=== PATIENT | male | born 1980 | race Caucasian/White ===

== ENCOUNTER 2016-04-23 17:26 | Emergency (ER) | payer OTHER ==
[~2016-04-23] VITALS: Ht 175.3 cm; Wt 96.0 kg
[2016-04-23 17:31] VITALS: Ht 175.3 cm; Wt 96.0 kg
[2016-04-23] MEDS ORDERED: ACETAMINOPHEN 500 MG TAB PO STA (18:50)
[2016-04-23] MEDS ORDERED: ALBUT/IPRATROP 3MG/0.5MG NEB 3 ML VIAL INH STA (18:50)
[2016-04-23] MEDS ORDERED: SODIUM CHLORIDE 0.9% 1000ML 1,000 ML IV STA (18:50)
[2016-04-23] MEDS ORDERED: KETOROLAC TROMETHAMINE 30 MG/ML VIAL IV STA (18:50)
[2016-04-23] MEDS ORDERED: ONDANSETRON 8 MG/54 ML D5W IV STA (18:50)
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
--- NOTE | 2016-04-23 19:27 | DIAGNOSTIC IMAGING REPORT ---
CHEST ONE VIEW PORTABLE CLINICAL HISTORY: flu like symptoms dyspnea COMPARISON STUDY: 06/12/2015 FINDINGS: The bones soft tissues and hemidiaphragms are normal. The cardiomediastinal silhouette is normal. The lungs are clear. The pulmonary vasculature is normal. Mild stable cardiomegaly IMPRESSION: Mild stable cardiomegaly. Otherwise negative chest Electronically signed by: Homero Newton M.D. 04/23/2016 7:26 PM Dictated Date/Time: 04/23/2016 7:25 PM
[2016-04-23 19:30] LABS: BASO % 0.6 %; BASO ABS # 0.02 K/uL (0-0.2); COMPLETE YES; EOS % 2.1 %; HEMATOCRIT 43.3 % (42-52); IG% 0.3 %; LYMPH ABS # 0.89 K/uL (1.2-3.4); MEAN CELL VOLUME 93.7 fL (80-100); MEAN CORPUSCULAR HEMOGLOBIN 31.2 pg (25-34); MEAN CORPUSCULAR HGB CONC 33.3 g/dl (32-36); MEAN PLATELET VOLUME 10.2 fL (7.4-10.4); PLATELET COUNT 196 K/uL (130-400); RED BLOOD COUNT 4.62 M/uL (4.7-6.1)
[2016-04-23] MEDS ORDERED: HYDROmorphone INJ 0.5 MG/0.5 ML SYR IV STA (19:40)
[2016-04-23] MEDS ORDERED: OSELTAMIVIR PHOSPHATE 75 MG CAP PO STA (19:40)
[2016-04-23 19:53] LABS: ALKALINE PHOSPHATASE 57 U/L (45-117); ALT/SGPT 53 U/L (12-78); BLOOD UREA NITROGEN 8 mg/dl (7-18); BUN/CREATININE RATIO 7.4 (10-20); CALCIUM 8.5 mg/dl (8.5-10.1); CARBON DIOXIDE 30 mmol/L (21-32); CHLORIDE 103 mmol/L (98-107); GLUCOSE 102 mg/dl (70-99)
[2016-04-23 20:05] LABS: SODIUM 143 mmol/L (136-145)
[2016-04-23 20:14] LABS: AST/SGOT 20 U/L (15-37)
[2016-04-23 20:40] VITALS: TEMP 37.2
[2016-04-23 20:50] LABS: MANUAL MICROSCOPIC REQUIRED? NO; URINE APPEARANCE CLEAR (CLEAR); URINE BILIRUBIN NEG (NEG); URINE COLOR YELLOW; URINE NITRITE NEG (NEG); URINE PH 5.5 (4.5-7.5); URINE SPECIFIC GRAVITY >= 1.030 (1.000-1.030); UROBILINOGEN NEG (NEG)
[2016-04-23 20:52] LABS: REVIEW REQ? NO; ZZUR CULT IF INDIC CLEAN CATCH NO
[2016-04-23] MEDS ORDERED: OSEL75CA12 PO (21:52)
[2016-04-23] MEDS ORDERED: HYCODAN 60ML BOTTLE HOMEPACK PO ONE (22:00)
[2016-04-23] MEDS ORDERED: ALBUTEROL HFA 8 GM INHALER INH ONE (22:00)
[2016-04-23 22:12] VITALS: BP 125/83; PULSE 87; O2SAT 96
== END 2016-04-23 22:14 | disposition home or self-care (01) ==
LOC: C.EDB 17:26 → C.EDA 22:14
DX: J10.1 Influenza due to other identified influenza virus with other respiratory manifestations (principal)

== ENCOUNTER 2017-01-01 15:27 | Emergency (ER) | payer OTHER ==
[2017-01-01 15:36] VITALS: O2SAT 96
[2017-01-01] MEDS ORDERED: ONDANSETRON 8 MG/54 ML D5W IV STA (15:36)
[2017-01-01] MEDS ORDERED: SODIUM CHLORIDE 0.9% 1000ML 1,000 ML IV STA (15:36)
[2017-01-01] MEDS ORDERED: ONDANSETRON INJ 2 MG/ML 2 ML VIAL IV STA (15:36)
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
[2017-01-01] MEDS ORDERED: OPTIRAY 320 IV PRN (15:45)
[2017-01-01] MEDS ORDERED: MoRPHine SULFATE 10 MG/ML CARP/VIAL IV STA (16:04)
[2017-01-01 16:05] LABS: VENOUS BLOOD GAS PCO2 61 mmHg (38.0-50.0); VENOUS BLOOD GAS PO2 24 mmHg
[2017-01-01] MEDS ORDERED: MoRPHine SULFATE 10 MG/ML CARP/VIAL ONE (16:05)
[2017-01-01 16:06] LABS: ISTAT CREATININE 1.5 mg/dl (0.6-1.3); ISTAT IONIZED CALCIUM 1.13 mmol/l (1.12-1.32)
[2017-01-01 16:06] LABS: VEN BLD GAS O2 SATURATION < 60.0 %
[2017-01-01 16:07] LABS: BASO % 0.6 %; BASO ABS # 0.05 K/uL (0-0.2); COMPLETE YES; EOS % 2.2 %; HEMATOCRIT 44.6 % (42-52); IG% 1.1 %; LYMPH % 35.1 %; LYMPH ABS # 2.81 K/uL (1.2-3.4); MEAN CELL VOLUME 94.7 fL (80-100); MEAN CORPUSCULAR HEMOGLOBIN 32.5 pg (25-34); MEAN CORPUSCULAR HGB CONC 34.3 g/dl (32-36); MEAN PLATELET VOLUME 10.3 fL (7.4-10.4); MONO % 7.9 %; NEUT % 53.1 %; PLATELET COUNT 296 K/uL (130-400); RED BLOOD COUNT 4.71 M/uL (4.7-6.1); WHITE BLOOD COUNT 8.01 K/uL (4.8-10.8)
[2017-01-01 16:14] LABS: INR 0.9 (0.9-1.1); PARTIAL THROMBOPLASTIN RATIO 0.9
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
[2017-01-01 16:26] LABS: ALT/SGPT 66 U/L (12-78); BLOOD UREA NITROGEN 17 mg/dl (7-18); BUN/CREATININE RATIO 12.1 (10-20); CALCIUM 8.7 mg/dl (8.5-10.1); CARBON DIOXIDE 27 mmol/L (21-32); CHLORIDE 100 mmol/L (98-107); CREATININE 1.36 mg/dl (0.60-1.40); GLUCOSE 112 mg/dl (70-99); POTASSIUM 3.4 mmol/L (3.5-5.1); SODIUM 138 mmol/L (136-145)
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
[2017-01-01 16:31] LABS: ALKALINE PHOSPHATASE 69 U/L (45-117); AST/SGOT 56 U/L (15-37)
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
[2017-01-01] MEDS ORDERED: HYDROmorphone INJ 0.5 MG/0.5 ML SYR IV STA ×2 (16:44→17:21)
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
[2017-01-01] MEDS ORDERED: SODIUM CHLORIDE 0.9% 500ML 500 ML IV STA (17:21)
[2017-01-01] MEDS ORDERED: HYDROmorphone INJ 1 MG/ML SYR IV STA (18:08)
[2017-01-01 18:20] VITALS: BP 136/100; PULSE 104; TEMP 36.5; O2SAT 98
== END 2017-01-01 18:21 | disposition short-term general hospital (02) ==
LOC: C.EDB 15:28 → C.EDA 18:21
DX: S22.41XA Multiple fractures of ribs, right side, initial encounter for closed fracture (principal); S06.0X9A Concussion with loss of consciousness of unspecified duration, initial encounter; S42.109A Fracture of unspecified part of scapula, unspecified shoulder, initial encounter for closed fracture; V86.99XA Unspecified occupant of other special all-terrain or other off-road motor vehicle injured in nontraffic accident, initial encounter; F10.129 Alcohol abuse with intoxication, unspecified; Y90.6 Blood alcohol level of 120-199 mg/100 ml; Z90.49 Acquired absence of other specified parts of digestive tract; Z83.3 Family history of diabetes mellitus; Z82.49 Family history of ischemic heart disease and other diseases of the circulatory system

== ENCOUNTER 2017-02-04 18:04 | Emergency (ER) | payer OTHER ==
[~2017-02-04] VITALS: Ht 175.3 cm; Wt 83.2 kg
[2017-02-04 18:11] VITALS: Ht 175.3 cm; Wt 83.2 kg
[2017-02-04 18:25] VITALS: O2SAT 96
[2017-02-04] MEDS ORDERED: ONDANSETRON INJ 2 MG/ML 2 ML VIAL IV STA (18:31)
[2017-02-04] MEDS ORDERED: MoRPHine SULFATE 4 MG/ML 1 ML CARP\\VIAL IV STA (18:31)
[2017-02-04] MEDS ORDERED: SODIUM CHLORIDE 0.9% 500ML 500 ML IV STA (18:31)
[2017-02-04 18:57] LABS: BASO % 0.4 %; BASO ABS # 0.02 K/uL (0-0.2); EOS % 1.3 %; EOS ABS # 0.06 K/uL (0-0.5); HEMOGLOBIN 14.7 g/dL (14.0-18.0); IG# 0.01 K/uL (0.00-0.02); LYMPH ABS # 1.43 K/uL (1.2-3.4); MEAN CELL VOLUME 90.1 fL (80-100); MEAN CORPUSCULAR HEMOGLOBIN 30.8 pg (25-34); MEAN CORPUSCULAR HGB CONC 34.2 g/dl (32-36); MONO % 10.1 %; MONO ABS # 0.45 K/uL (0.11-0.59); PLATELET COUNT 317 K/uL (130-400); RED CELL DISTRIBUTION WIDTH CV 12.5 % (11.5-14.5); WHITE BLOOD COUNT 4.47 K/uL (4.8-10.8)
[2017-02-04 18:59] LABS: ISTAT IONIZED CALCIUM 1.06 mmol/l (1.12-1.32); ISTAT POTASSIUM 4.4 mEq/L (3.3-5.0)
[2017-02-04] MEDS ORDERED: OPTIRAY 320 IV PRN (19:00)
[2017-02-04 19:09] VITALS: TEMP 37.1
[2017-02-04 19:18] LABS: CALCIUM 9.1 mg/dl (8.5-10.1); CREATININE 1.06 mg/dl (0.60-1.40)
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
[2017-02-04] MEDS ORDERED: OXYCODONE HCL IR 5 MG TAB (IMMEDIATE RELEASE) PO STA (19:34)
[2017-02-04] MEDS ORDERED: OXYC-737 PO (19:35)
[2017-02-04] MEDS ORDERED: TRAM-10 PO (19:40)
[2017-02-04] MEDS ORDERED: EMPTY 8 DRAM VIAL ONE (19:44)
[2017-02-04 19:47] VITALS: BP 138/84; PULSE 79; O2SAT 99
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
[2017-03-17] MEDS ORDERED: OXYC-90 PO (17:23)
== END 2017-02-04 20:01 | disposition home or self-care (01) ==
LOC: C.EDB 18:05 → C.EDC 20:01
DX: S22.41XS Multiple fractures of ribs, right side, sequela (principal); V86.55XS Driver of 3- or 4- wheeled all-terrain vehicle (ATV) injured in nontraffic accident, sequela; Y92.821 Forest as the place of occurrence of the external cause; Z83.3 Family history of diabetes mellitus; Z82.49 Family history of ischemic heart disease and other diseases of the circulatory system

== ENCOUNTER 2017-03-17 16:15 | Emergency (ER) | payer OTHER ==
[~2017-03-17] VITALS: Ht 175.3 cm; Wt 89.0 kg
[~2017-03-17 16:15] MED LIST: OXYC1TAB3 PO; TRAM-10 PO
[2017-03-17 16:21] VITALS: TEMP 37; Ht 175.3 cm; Wt 89.0 kg
[2017-03-17] MEDS ORDERED: OPTIRAY 320 IV PRN (17:00)
[2017-03-17] MEDS ORDERED: SODIUM CHLORIDE 0.9% 1000ML 1,000 ML IV STA (17:13)
[2017-03-17] MEDS ORDERED: ONDANSETRON INJ 2 MG/ML 2 ML VIAL IV STA (17:13)
[2017-03-17 17:14] LABS: BASO % 0.7 %; BASO ABS # 0.04 K/uL (0-0.2); EOS % 8.3 %; EOS ABS # 0.45 K/uL (0-0.5); HEMATOCRIT 37.3 % (42-52); HEMOGLOBIN 12.4 g/dL (14.0-18.0); IG# 0.02 K/uL (0.00-0.02); LYMPH % 25.9 %; MEAN CELL VOLUME 90.8 fL (80-100); MEAN CORPUSCULAR HEMOGLOBIN 30.2 pg (25-34); MEAN CORPUSCULAR HGB CONC 33.2 g/dl (32-36); MEAN PLATELET VOLUME 9.6 fL (7.4-10.4); MONO % 10.7 %; MONO ABS # 0.58 K/uL (0.11-0.59); NEUT ABS # 2.92 K/uL (1.4-6.5); PLATELET COUNT 320 K/uL (130-400); RED CELL DISTRIBUTION WIDTH CV 13.9 % (11.5-14.5); RED CELL DISTRIBUTION WIDTH SD 45.8 fL (36.4-46.3); WHITE BLOOD COUNT 5.41 K/uL (4.8-10.8)
[2017-03-17] MEDS ORDERED: OXYC1TAB3 PO (17:23)
[2017-03-17] MEDS ORDERED: METH10TA2 PO (17:25)
[2017-03-17] MEDS ORDERED: CARI350T27 PO (17:26)
[2017-03-17] MEDS ORDERED: CLB100 PO (17:27)
[2017-03-17 17:36] LABS: ALBUMIN 3.2 gm/dl (3.4-5.0); CALCIUM 8.2 mg/dl (8.5-10.1); CREATININE 1.17 mg/dl (0.60-1.40); POTASSIUM 4.3 mmol/L (3.5-5.1); TOTAL PROTEIN 6.8 gm/dl (6.4-8.2)
[2017-03-17 18:11] VITALS: BP 121/64; PULSE 80; O2SAT 95
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
[2017-03-17] MEDS ORDERED: FENTANYL CITRATE INJ 50 MCG/1 ML 2 ML VIAL IV STA (18:23)
[2017-03-17] MEDS ORDERED: OXYCODONE HCL IR 5 MG TAB (IMMEDIATE RELEASE) PO STA (18:34)
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
== END 2017-03-17 19:34 | disposition home or self-care (01) ==
LOC: C.EDB 16:17 → C.EDC 19:34
DX: R07.9 Chest pain, unspecified (principal); Z87.828 Personal history of other (healed) physical injury and trauma; Z83.3 Family history of diabetes mellitus; Z82.49 Family history of ischemic heart disease and other diseases of the circulatory system; Z79.899 Other long term (current) drug therapy

== ENCOUNTER 2017-04-10 16:18 | Emergency (ER) | payer OTHER ==
[~2017-04-10] VITALS: Ht 175.3 cm; Wt 87.0 kg
[~2017-04-10 16:18] MED LIST changes: +CARI350T27 PO; +CLB100 PO; +METH10TA2 PO; -TRAM-10 PO
[2017-04-10 16:19] VITALS: TEMP 36.9; Ht 175.3 cm; Wt 87.0 kg
[2017-04-10] MEDS ORDERED: OPTIRAY 320 IV PRN (17:00)
[2017-04-10 17:06] LABS: BASO % 0.2 %; BASO ABS # 0.01 K/uL (0-0.2); EOS % 1.4 %; EOS ABS # 0.07 K/uL (0-0.5); HEMATOCRIT 40.2 % (42-52); HEMOGLOBIN 13.8 g/dL (14.0-18.0); LYMPH % 27.1 %; LYMPH ABS # 1.35 K/uL (1.2-3.4); MEAN CELL VOLUME 88.4 fL (80-100); MEAN CORPUSCULAR HEMOGLOBIN 30.3 pg (25-34); MEAN CORPUSCULAR HGB CONC 34.3 g/dl (32-36); MONO % 10.4 %; MONO ABS # 0.52 K/uL (0.11-0.59); NEUT % 60.9 %; NEUT ABS # 3.03 K/uL (1.4-6.5); PLATELET COUNT 263 K/uL (130-400); RED CELL DISTRIBUTION WIDTH CV 14.3 % (11.5-14.5); RED CELL DISTRIBUTION WIDTH SD 46.2 fL (36.4-46.3); WHITE BLOOD COUNT 4.98 K/uL (4.8-10.8)
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
[2017-04-10 17:16] LABS: ISTAT CREATININE 0.8 mg/dl (0.6-1.3); ISTAT IONIZED CALCIUM 1.09 mmol/l (1.12-1.32); ISTAT POTASSIUM 3.8 mEq/L (3.3-5.0)
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
[2017-04-10 17:23] LABS: ALT/SGPT 23 U/L (12-78); BLOOD UREA NITROGEN 8 mg/dl (7-18); CALCIUM 8.7 mg/dl (8.5-10.1); CARBON DIOXIDE 27 mmol/L (21-32); CREATININE 0.87 mg/dl (0.60-1.40); GLUCOSE 90 mg/dl (70-99); POTASSIUM 3.8 mmol/L (3.5-5.1); SODIUM 139 mmol/L (136-145)
[2017-04-10 17:27] LABS: ALKALINE PHOSPHATASE 115 U/L (45-117); AST/SGOT 12 U/L (15-37); TOTAL PROTEIN 7.5 gm/dl (6.4-8.2)
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
[2017-04-10] MEDS ORDERED: FENTANYL CITRATE INJ 50 MCG/1 ML 2 ML VIAL IV STA (17:41)
[2017-04-10] MEDS ORDERED: ACETAMINOPHEN 325 MG TAB PO STA (17:44)
[2017-04-10] MEDS ORDERED: TRAMADOL HCL 50 MG TAB PO STA (17:44)
[2017-04-10] MEDS ORDERED: PROCHLORPERAZINE 5 MG/ML 2 ML VIAL IV STA (18:30)
[2017-04-10] MEDS ORDERED: DiphenhydrAMINE HCL 50 MG/ML VIAL IV STA (18:30)
[2017-04-10] MEDS ORDERED: KETOROLAC TROMETHAMINE 30 MG/ML VIAL IV STA (18:30)
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
[2017-04-10 19:43] VITALS: BP 128/87; PULSE 76; O2SAT 100
== END 2017-04-10 19:45 | disposition home or self-care (01) ==
LOC: C.EDB 16:19
DX: S06.0X9A Concussion with loss of consciousness of unspecified duration, initial encounter (principal); D64.9 Anemia, unspecified; R07.9 Chest pain, unspecified; R51 Headache; V48.5XXA Car driver injured in noncollision transport accident in traffic accident, initial encounter; Z87.828 Personal history of other (healed) physical injury and trauma; Z83.49 Family history of other endocrine, nutritional and metabolic diseases; Z83.3 Family history of diabetes mellitus

== ENCOUNTER 2017-09-10 08:14 | Emergency (ER) | payer OTHER ==
[~2017-09-10] VITALS: Ht 175.3 cm; Wt 94.6 kg
[2017-09-10 08:18] VITALS: TEMP 36.6; Ht 175.3 cm; Wt 94.6 kg
[2017-09-10] MEDS ORDERED: SODIUM CHLORIDE 0.9% 1000ML 1,000 ML IV STA (08:42)
[2017-09-10] MEDS ORDERED: METOCLOPRAMIDE HCL INJ 5 MG/ML 2 ML VIAL IV. STA (08:42)
[2017-09-10] MEDS ORDERED: HYDROmorphone INJ 1 MG/ML SYR IV STA (08:42)
[2017-09-10] MEDS ORDERED: OPTIRAY 320 IV PRN (09:00)
[2017-09-10 09:01] LABS: BASO % 1.9 %; EOS % 5.4 %; EOS ABS # 0.28 K/uL (0-0.5); HEMATOCRIT 44.6 % (42-52); HEMOGLOBIN 15.3 g/dL (14.0-18.0); IG# 0.01 K/uL (0.00-0.02); LYMPH % 35.5 %; LYMPH ABS # 1.85 K/uL (1.2-3.4); MEAN CELL VOLUME 92.5 fL (80-100); MEAN CORPUSCULAR HEMOGLOBIN 31.7 pg (25-34); MEAN CORPUSCULAR HGB CONC 34.3 g/dl (32-36); MEAN PLATELET VOLUME 10.3 fL (7.4-10.4); MONO ABS # 0.47 K/uL (0.11-0.59); PLATELET COUNT 237 K/uL (130-400); RED CELL DISTRIBUTION WIDTH CV 13.4 % (11.5-14.5); RED CELL DISTRIBUTION WIDTH SD 45.3 fL (36.4-46.3); WHITE BLOOD COUNT 5.21 K/uL (4.8-10.8)
[2017-09-10 09:38] LABS: CALCIUM 8.9 mg/dl (8.5-10.1); CREATININE 1.07 mg/dl (0.60-1.40); TOTAL PROTEIN 7.7 gm/dl (6.4-8.2)
[2017-09-10 11:26] VITALS: BP 121/81; O2SAT 99
--- NOTE | 2017-09-10 11:36 | DIAGNOSTIC IMAGING REPORT ---
CT OF THE ABDOMEN AND PELVIS WITH CONTRAST CLINICAL HISTORY: Right lower quadrant abdominal pain. COMPARISON STUDY: CT of the abdomen and pelvis April 10, 2017. TECHNIQUE: Following IV administration of 92 mL of Optiray-320, axial images of the abdomen and pelvis were obtained from the lung bases to the proximal femurs. Images were reviewed in the axial, sagittal, and coronal planes. IV contrast was administered without complication. A dose lowering technique was utilized adhering to the principles of ALARA. FINDINGS: Please note that the chest CT will be reported separately. Multiple old right-sided rib fractures are noted. Previous right chest wall reconstruction is partially imaged on this exam. A hiatal hernia is noted with elevation of the left hemidiaphragm. This is unchanged. No pneumatosis, free air or portal venous gas is present. The liver, spleen, adrenal glands, kidneys and pancreas are normal. There is no peripancreatic or pericholecystic infiltration. The appendix is not visualized. Postsurgical findings within the right lower quadrant are noted. There is no evidence for a bowel obstruction. No abscess is identified. There is a made of apparent soft tissue thickening measuring approximately 1.7 cm along the anterior aspect of the gastric antrum shown image 99 of 511. There are clustered small adjacent lymph nodes. There is apparent hyperemia of the distal sigmoid colon without significant wall thickening. IMPRESSION: 1. Apparent soft tissue thickening with small adjacent cluster lymph nodes along the anterior aspect of the gastric antrum. This could simply represent normal lymph nodes however a mucosal abnormality such as ulcer or mass could appear similar. Follow-up nonemergent GI consultation is recommended. 2. Mild hyperemia of the distal sigmoid colon which may reflect a nonspecific colitis. No bowel wall thickening. 3. No bowel obstruction. Electronically signed by: Favian Youngblood M.D. 09/10/2017 11:35 AM Dictated Date/Time: 09/10/2017 11:20 AM
--- NOTE | 2017-09-10 11:41 | DIAGNOSTIC IMAGING REPORT ---
CHEST CT WITH CONTRAST CT DOSE: 1212.72 mGy.cm HISTORY: Pt c/o Rt sided chest wall pain TECHNIQUE: Multiaxial CT images of the chest were performed following the intravenous administration of contrast. A dose lowering technique was utilized adhering to the principles of ALARA. COMPARISON: Chest CT 04/10/2017. FINDINGS: Multiple old, healed right-sided rib fractures are again noted. Some of these demonstrate cortical plate transfixed with screws. No acute rib fractures. Old, healed fracture within the distal tip of the right scapula. No pneumothorax. No pleural effusions. The central airways are patent. The left lung is clear. Mild right pleural thickening and a small right lower lobe peripheral scarlike density remains unchanged. This is likely due to the old posttraumatic changes. Otherwise, the right lung is clear. Suggestive of prior Sasha fundoplication. Moderate hiatus hernia is noted. The heart is normal in size. No mediastinal or hilar lymphadenopathy. Normal caliber thoracic aorta with no evidence for dissection. The central pulmonary arteries are patent. IMPRESSION: 1. No significant change compared to the prior study. 2. Old posttraumatic changes within the right chest. 3. Moderate hiatus hernia. 4. Please refer to the dedicated abdomen and pelvis CT performed same day for further evaluation of the abdominal structures. Electronically signed by: Pan Huang M.D. 09/10/2017 11:40 AM Dictated Date/Time: 09/10/2017 11:26 AM
[2017-09-10] MEDS ORDERED: GI COCKTAIL PO STA (11:54)
[2017-09-10] MEDS ORDERED: FAMOTIDINE 20 MG TAB PO STA (11:54)
[2017-09-10] MEDS ORDERED: SUCRALFATE 1 GM TAB PO STA (11:54)
[2017-09-10] MEDS ORDERED: FAMO40TA6 PO (11:55)
[2017-09-10] MEDS ORDERED: LIDOCAINE HCL 2% VISC SOLN 20 ML UDC ONE (12:00)
[2017-09-10] MEDS ORDERED: ALUMINUM/MAGNESIUM SUSP 30 ML UDC ONE (12:00)
[2017-09-10] MEDS ORDERED: OXYC-57 PO (12:09)
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
== END 2017-09-10 11:56 | disposition home or self-care (01) ==
LOC: C.EDB 08:15
DX: R07.89 Other chest pain (principal); R10.13 Epigastric pain; Z98.84 Bariatric surgery status; Z98.890 Other specified postprocedural states